=== PATIENT | male | born 1955 | race Asian ===

== ENCOUNTER 2018-12-05 10:07 | Inpatient (IN) | payer MEDICARE, OTHER ==
[~2018-12-05] VITALS: Ht 165.1 cm; Wt 57.1 kg
[2018-12-05 10:49] LABS: Basophils # (auto) 0 uL; Basophils % (auto) 1.1 % (0.0-2.0); Eosinophils # (auto) 0.1 uL; Eosinophils % (auto) 3.3 % (0.0-7.0); Hematocrit 40.1 % (41.0-53.0); Hemoglobin 13.3 g/dL (13.5-17.5); Lymphocytes # (auto) 0.7 uL; Lymphocytes % (auto) 19.2 % (10.0-50.0); Mean Corpuscular Hemoglobin 32.2 pg (28.0-32.0); Mean Corpuscular Hgb Conc. 33.1 g/dL (32.0-36.0); Mean Corpuscular Volume 97.3 fL (80.0-100.0); Monocytes # (auto) 0.2 uL; Monocytes % (auto) 5.9 % (0.0-12.0); Neutrophils # (auto) 2.5 uL; Neutrophils % (auto) 70.5 % (37.0-80.0); Nucleated Red Blood Cells % 0.1 %; Platelet Count (auto) 130 10^3/uL (140-450); Red Blood Cells 4.13 10^6/uL (4.5-5.90); Red Cell Distribution Width 15.1 % (11.8-14.3); White Blood Cell 3.5 10^3/uL (4.4-10.8)
[2018-12-05 11:10] LABS: Albumin 3.2 g/dL (3.4-5.0); Calcium 8.2 mg/dL (8.5-10.1); Magnesium 1.6 mg/dL (1.6-2.6); Potassium 3.6 mmol/L (3.5-5.1)
[2018-12-05 11:15] LABS: BUN/Creatinine Ratio 24.4; Bilirubin, Total 1.4 mg/dL (0.2-1.0); Total Protein 6.4 g/dL (6.4-8.2)
[2018-12-05] MEDS ORDERED: ENOXAPARIN SOD 60 MG/0.6 ML SYRINGE SC ONE (11:45)
[2018-12-05] MEDS ORDERED: FUROSEMIDE 40 MG/4 ML VIAL IV ONE (11:45)
[2018-12-05] MEDS ORDERED: MORPHINE SULF INJ 2 MG/ML SYRINGE 1ML IV PRN ×2 (13:30)
[2018-12-05] MEDS ORDERED: NITROGLYCERIN 0.4 MG SL TAB SL PRN (13:30)
[2018-12-05] MEDS ORDERED: ONDANSETRON HCL 4 MG/2 ML VIAL IV PRN (13:30)
[2018-12-05] MEDS ORDERED: ALBUTEROL SULF 2.5 MG/0.5ML(0.5%) NEB SOLN NEB PRN (13:30)
[2018-12-05 14:02] VITALS: BP 107/43
--- NOTE | 2018-12-05 14:20 | NUR ---
Pt Arrived On Unit Pt arrived on unit via wheelchair. Pt able to ambulate to bed without difficulty. Pt is a/ox4 with no s/s of distress or SOB. Safety measures maintained with call light within reach, bed in lowest position and side rails up. Will continue to monitor for changes q1hr and prn.
[2018-12-05 15:01] VITALS: BP 105/48
[2018-12-05 15:17] VITALS: BP 105/48
[2018-12-05] MEDS ORDERED: ASPI-404 PO (15:27)
--- NOTE | 2018-12-05 16:11 | NUR ---
Respiratory note: PT FOUND ON NASAL CANNULA 2 LPM WITH NO DISTRESS NOTED. PT IS AWAKE, ALERT AND RESPONSIVE. SPO2 96% RR 18, BS CLEAR AND DIMINISHED. PT DENIES ANY SOB AT THIS TIME. PT NOTIFIED TO PUSH CALL BUTTON AND HAVE RT PAGED IF SOB OCCURS. NO TX INDICATED AT THIS TIME.
--- NOTE | 2018-12-05 16:47 | NUR ---
Dr Irving at Bedside to See Pt Plans for VQ scan and CT chest. Will follow through with orders.
--- NOTE | 2018-12-05 16:52 | NUR ---
Dr Victoria at Bedside Orders given, will implement.
[2018-12-05 17:27] VITALS: BP 106/51
--- NOTE | 2018-12-05 17:28 | NUR ---
Pt Taken to CT via Wheelchair
--- NOTE | 2018-12-05 18:08 | NUR ---
US AT BEDSIDE FOR ECHO
--- NOTE | 2018-12-05 20:00 | NUR ---
RECEIVE IN BED WATCHING TV
[2018-12-05] MEDS ORDERED: FUROSEMIDE 40 MG/4 ML VIAL ONE (21:25)
[2018-12-05] MEDS: FUROSEMIDE 40 MG/4 ML VIAL IV SCH (21:34)
[2018-12-05] MEDS: ENOXAPARIN SOD 40 MG/0.4 ML SYRINGE SC SCH (21:38)
[2018-12-05] MEDS: ATORVASTATIN 20 MG TAB PO SCH (21:38)
[2018-12-05 22:00] VITALS: BP 103/54
[2018-12-06 05:00] VITALS: BP 95/46
[2018-12-06 06:02] LABS: Basophils # (auto) 0 uL; Eosinophils # (auto) 0.3 uL; Eosinophils % (auto) 6.6 % (0.0-7.0); Hematocrit 37.7 % (41.0-53.0); Hemoglobin 12.8 g/dL (13.5-17.5); Lymphocytes # (auto) 0.8 uL; Lymphocytes % (auto) 20.5 % (10.0-50.0); Mean Corpuscular Hemoglobin 32.5 pg (28.0-32.0); Mean Corpuscular Hgb Conc. 33.9 g/dL (32.0-36.0); Mean Corpuscular Volume 95.9 fL (80.0-100.0); Monocytes # (auto) 0.3 uL; Neutrophils # (auto) 2.5 uL; Neutrophils % (auto) 64.9 % (37.0-80.0); Nucleated Red Blood Cells % 0.1 %; Platelet Count (auto) 129 10^3/uL (140-450); Red Blood Cells 3.93 10^6/uL (4.5-5.90); Red Cell Distribution Width 14.7 % (11.8-14.3); White Blood Cell 3.8 10^3/uL (4.4-10.8)
[2018-12-06 06:23] LABS: Albumin 3.2 g/dL (3.4-5.0); BUN/Creatinine Ratio 23.4; Bilirubin, Total 1.7 mg/dL (0.2-1.0); Calcium 8.2 mg/dL (8.5-10.1); Magnesium 2.1 mg/dL (1.6-2.6); Potassium 3.4 mmol/L (3.5-5.1)
--- NOTE | 2018-12-06 07:53 | NUR ---
Respiratory note: PRE AND POST BRONCHODILATOR SPIROMETRY DONE. RESULTS ARE POSTED IN PAPER CHART.
[2018-12-06 08:00] VITALS: BP 103/54
[2018-12-06 08:49] VITALS: BP 98/56
[2018-12-06] MEDS ORDERED: ASPirin 81 mg TAB PO ONE (10:00)
--- NOTE | 2018-12-06 10:00 | NUR ---
Scheduled Lasix held at this time due to B/P of . Pt showing no resp distress at this time.
[2018-12-06] MEDS: ASPirin 81 mg TAB PO SCH (10:29)
[2018-12-06] MEDS: POTASSIUM CHL 20 Meq TABLET PO SCH (10:29)
[2018-12-06] MEDS: ENOXAPARIN SOD 40 MG/0.4 ML SYRINGE SC SCH (10:29)
--- NOTE | 2018-12-06 12:00 | NUR ---
Dr. Salinas informed of VQ scan results.
[2018-12-06 12:41] VITALS: BP 106/57
--- NOTE | 2018-12-06 14:00 | NUR ---
Previously scheduled Lasix given at this time. B/P 106/57. Pt denies chest pain. O2 maintained at 2L/n.c. Resp even, unlabored at rest. Pt showing some exertional dyspnea while on room air, and ambulating to bathroom. No other c/o pain or discomfort.
[2018-12-06] MEDS: FUROSEMIDE 40 MG/4 ML VIAL IV SCH ×2 (14:16→21:51)
[2018-12-06 16:50] VITALS: BP 108/49
--- NOTE | 2018-12-06 18:48 | NUR ---
PT ASSESSED FOR PRN MED NEB TX. SPO2 99% ON 3L NC, HR 79. PT DENIES NEED FOR MED NEB TX AT THIS TIME. NO TX INDICATED. PT IS AWARE TO HAVE RT PAGED IF TX NEEDED.
--- NOTE | 2018-12-06 20:00 | NUR ---
Opening Shift Note Assumed care of patient, awake and alert. No S/S of distress/SOB or pain. Instructed on POC and to call for assist PRN, will continue to monitor for changes Q1hr and PRN.
[2018-12-06] MEDS: ENOXAPARIN SOD 80 MG/0.8ML SYRINGE SC SCH (21:36)
[2018-12-06] MEDS: ATORVASTATIN 20 MG TAB PO SCH (21:37)
[2018-12-06 22:00] VITALS: BP 104/49
[2018-12-07 05:03] VITALS: BP 98/48
[2018-12-07 05:58] LABS: Basophils # (auto) 0 uL; Basophils % (auto) 0.5 % (0.0-2.0); Eosinophils # (auto) 0.3 uL; Eosinophils % (auto) 6.7 % (0.0-7.0); Hematocrit 40.7 % (41.0-53.0); Lymphocytes % (auto) 23.8 % (10.0-50.0); Mean Corpuscular Hemoglobin 32.9 pg (28.0-32.0); Mean Corpuscular Hgb Conc. 34.5 g/dL (32.0-36.0); Mean Corpuscular Volume 95.4 fL (80.0-100.0); Monocytes # (auto) 0.3 uL; Monocytes % (auto) 7.5 % (0.0-12.0); Neutrophils # (auto) 2.7 uL; Neutrophils % (auto) 61.5 % (37.0-80.0); Nucleated Red Blood Cells % 0.1 %; Platelet Count (auto) 133 10^3/uL (140-450); Red Blood Cells 4.27 10^6/uL (4.5-5.90); Red Cell Distribution Width 14.7 % (11.8-14.3); White Blood Cell 4.3 10^3/uL (4.4-10.8)
--- NOTE | 2018-12-07 06:15 | NUR ---
Respiratory note: PATIENT ASSESSED FOR PRN MED-NEB TX. MED-NEB NOT INDICATED AT THIS TIME PATIENT IS IN NO ACUTE RESPIRATORY DISTRESS AND DENIES NEED. PATIENT INSTRUCTED TO CALL FOR RT IF HE FELT THE NEED FOR TX AT A LATER TIME. SPO2 98% 3LPM N/C
[2018-12-07 06:33] LABS: Albumin 3.5 g/dL (3.4-5.0); BUN/Creatinine Ratio 28.4; Bilirubin, Total 1.5 mg/dL (0.2-1.0); Calcium 8.9 mg/dL (8.5-10.1); Magnesium 2.2 mg/dL (1.6-2.6); Potassium 3.5 mmol/L (3.5-5.1); Total Protein 6.7 g/dL (6.4-8.2)
--- NOTE | 2018-12-07 07:23 | NUR ---
Report given to Kristine Peterson, patient is resting no resp. distress.
[2018-12-07 08:00] VITALS: BP 104/49
[2018-12-07 09:19] VITALS: BP 101/45
[2018-12-07] MEDS: ASPirin 81 mg TAB PO SCH (09:29)
[2018-12-07] MEDS: POTASSIUM CHL 20 Meq TABLET PO SCH (09:30)
[2018-12-07] MEDS: FUROSEMIDE 40 MG/4 ML VIAL IV SCH ×2 (09:30→21:39)
[2018-12-07] MEDS: ENOXAPARIN SOD 80 MG/0.8ML SYRINGE SC SCH ×2 (09:31→21:39)
[2018-12-07 12:47] VITALS: BP 96/42
[2018-12-07 17:23] VITALS: BP 97/36
--- NOTE | 2018-12-07 18:44 | NUR ---
Respiratory note: ASSESSMENT FOR PRN MED NEB TX. HR 90, SPO2 99% ON 4L NC, RR 17, BS DIMINISHED. PT PRESENTING NO RESPIRATORY DISTRESS AT THIS TIME, MED NEB TX NOT INDICATED. TITRATED FIO2 TO 3L, PT TOLERATING WELL. PT AWARE TO HAVE RT PAGED IF MED NEB TX IS NEEDED. WILL CONTINUE TO MONITOR ORDERED.
--- NOTE | 2018-12-07 20:00 | NUR ---
Opening Shift Note Assumed care of patient, awake and alert. No S/S of distress/SOB or pain. Instructed on POC and to call for assist PRN, will continue to monitor for changes Q1hr and PRN.Reading the bible.
[2018-12-07] MEDS: ATORVASTATIN 20 MG TAB PO SCH (21:39)
[2018-12-07 22:00] VITALS: BP 106/49
[2018-12-08 05:45] LABS: Basophils # (auto) 0 uL; Basophils % (auto) 1.2 % (0.0-2.0); Eosinophils # (auto) 0.3 uL; Eosinophils % (auto) 8.4 % (0.0-7.0); Hematocrit 41.6 % (41.0-53.0); Hemoglobin 14.3 g/dL (13.5-17.5); Lymphocytes # (auto) 0.9 uL; Lymphocytes % (auto) 23.1 % (10.0-50.0); Mean Corpuscular Hemoglobin 32.7 pg (28.0-32.0); Mean Corpuscular Hgb Conc. 34.4 g/dL (32.0-36.0); Mean Corpuscular Volume 95.3 fL (80.0-100.0); Monocytes # (auto) 0.4 uL; Monocytes % (auto) 9.1 % (0.0-12.0); Neutrophils # (auto) 2.2 uL; Neutrophils % (auto) 58.2 % (37.0-80.0); Nucleated Red Blood Cells % 0.1 %; Platelet Count (auto) 145 10^3/uL (140-450); Red Blood Cells 4.37 10^6/uL (4.5-5.90); Red Cell Distribution Width 14.6 % (11.8-14.3); White Blood Cell 3.9 10^3/uL (4.4-10.8)
[2018-12-08 06:01] VITALS: BP 102/46
[2018-12-08 06:06] LABS: Albumin 3.6 g/dL (3.4-5.0); BUN/Creatinine Ratio 23.9; Calcium 8.9 mg/dL (8.5-10.1); Magnesium 2.4 mg/dL (1.6-2.6); Potassium 3.7 mmol/L (3.5-5.1)
[2018-12-08 06:09] LABS: Total Protein 6.7 g/dL (6.4-8.2)
--- NOTE | 2018-12-08 06:30 | NUR ---
IV insertion IV access obtained, via clean sterile technique by inserting 22 gauge catheter at left forearm after attempt. IV secured properly. No trauma to site. Patient tolerated procedure well.
--- NOTE | 2018-12-08 06:30 | NUR ---
IV removal IV DC'd with sterile technique, catheter fully intact. Pressure dressing applied to site. Patient tolerated procedure well. NOTE: I.v.line its the 3rd day, need to insert a new line.
--- NOTE | 2018-12-08 07:26 | NUR ---
Care report given to Kristine Hallman, patient is resting no distress.
--- NOTE | 2018-12-08 08:00 | NUR ---
Patient sitting in chair, awake, oriented x4, ambulatory. Patient requested for shampoo to wash his hair. Shampoo/body wash provided.
[2018-12-08 09:00] VITALS: BP 112/34
[2018-12-08 09:40] LABS: INR 1.03 (0.9-1.15)
[2018-12-08] MEDS: FUROSEMIDE 40 MG/4 ML VIAL IV SCH ×2 (09:55→21:29)
[2018-12-08] MEDS: ASPirin 81 mg TAB PO SCH (09:55)
[2018-12-08] MEDS: POTASSIUM CHL 20 Meq TABLET PO SCH (09:55)
[2018-12-08] MEDS: ENOXAPARIN SOD 80 MG/0.8ML SYRINGE SC SCH ×2 (09:57→21:31)
--- NOTE | 2018-12-08 09:57 | NUR ---
Patient refused Lovenox SC.
--- NOTE | 2018-12-08 11:10 | NUR ---
Keep patient NPO for Left Heart Cath today as per Dr. Galindo.
--- NOTE | 2018-12-08 11:10 | NUR ---
Dr. Galindo came over. ordered Left Heart Cath with Dr. Brambila at 2:00 pm today. made aware patient had breakfast, refused Lovenox SC. Dr. Galindo ordered NPO for the patient.
--- NOTE | 2018-12-08 11:43 | NUR ---
NUTRITION ASSESSMENT NOTES Please refer to link notes of nutrition screen form filed under the intervention section of the plan of care for further details. Est. Needs: 1750 kcal to 2050 kcal (25-30 kcal/kgBW), 58 gms to 70 gms pro (1.0-1.2 gms/kgBW). Will continue to monitor pertinent labs and reassess nutrient need prn Thank you. Addendum: 12/08/18 at [address] Amended: Links added.
--- NOTE | 2018-12-08 12:40 | NUR ---
Transferred the patient via bed, to Medical Cash Poster. Patient awake, oriented x4, no acute distress noted, IV line intact and patent. Endorsed patient to Medical Cash Poster KEL Marina.
[2018-12-08] MEDS ORDERED: IOHEXOL 350 MG/ML 100ML IJ ONE (13:08)
[2018-12-08] MEDS ORDERED: LIDOCAINE 2%HCL (LOCAL ANESTH.) INJ 20ML MDV ONE (13:09)
[2018-12-08] MEDS ORDERED: ANGIOMAX 250 MG VIAL IV ONE (13:17)
[2018-12-08] MEDS ORDERED: HEPARIN SODIUM (PORCINE) 5000 UNITS/ML 1ML VIAL ONE (13:18)
[2018-12-08] MEDS ORDERED: fentaNYL CITRATE 100 MCG/2 ML VL ONE (13:18)
[2018-12-08] MEDS ORDERED: VERAPAMIL 2.5MG/ML INJ 2ML VIAL IV ONE (13:18)
[2018-12-08] MEDS ORDERED: MIDAZOLAM HCL 1MG/1ML-2 ML VIAL ONE (13:18)
[2018-12-08] MEDS ORDERED: SODIUM CHL 0.9% 0 ML ONE (13:18)
[2018-12-08] MEDS ORDERED: IODIXANOL 320MG/ML 100ML BTL IV ONE (13:53)
[2018-12-08 14:00] VITALS: BP 117/29
[2018-12-08] MEDS ORDERED: FUROSEMIDE 40 MG/4 ML VIAL IV ONE (15:15)
--- NOTE | 2018-12-08 15:24 | NUR ---
Patient still at Grain Weigher at this time.
--- NOTE | 2018-12-08 15:24 | NUR ---
Received report from Senior Php Developer KEL Myers that patient's LHC is negative, okay to ambulate at 3:30 pm, access is the right wrist on Vasc band, start deflating at 3:30 pm today.
--- NOTE | 2018-12-08 15:45 | NUR ---
Patient back to room, right wrist on Vasc band. NS drip for 6 hours only (up to 10:00 pm tonight) as per Chart Picker.
[2018-12-08] MEDS: SODIUM CHLORIDE 0.9% 1,000 ML IV SCH (15:59)
--- NOTE | 2018-12-08 17:00 | NUR ---
About 5 ml of air removed on the wrist band. Addendum: 12/08/18 at 1928 by Viji Montenegro RN Vasc band
[2018-12-08 17:24] VITALS: BP 101/28
--- NOTE | 2018-12-08 18:00 | NUR ---
About 5 ml of air removed from the Vasc band on the wrist. No active bleeding noted.
--- NOTE | 2018-12-08 18:00 | NUR ---
Family member at bedside.
--- NOTE | 2018-12-08 20:00 | NUR ---
RECEIVE IN BED IS WATCHING TV VASC BAND CHECKED NO BLEEDING 2ML OF AIR REMOVED IS ANXIOUS TO HAVE SAME REMOVED
--- NOTE | 2018-12-08 20:41 | NUR ---
Respiratory note: PT DID NOT DISPLAY SIGNS OF RESPIRATORY DISTRESS AT THIS TIME. PT ON 2L NC WITH SPO2 96%. HR 81. BS CLEAR. RR 16. PT EDUCATED ON NURSE CALL BUTTON INCASE OF SOB.
[2018-12-08 21:00] VITALS: BP 107/46
--- NOTE | 2018-12-08 21:00 | NUR ---
RT WRIST HEART CATH SITE WITH VASC BAND NO BLEEDING OBSERVED 2ML OF AIR REMOVED, UP WALKING TO BATHROOM
[2018-12-08] MEDS: ATORVASTATIN 20 MG TAB PO SCH (21:30)
[2018-12-08] MEDS: SACUBITRIL-VALSARTAN 24mg/26mg TAB PO SCH (21:31)
[2018-12-08 23:03] VITALS: BP 107/46
[2018-12-09] MEDS: SODIUM CHLORIDE 0.9% 1,000 ML IV SCH ×3 (01:15→21:15)
[2018-12-09 04:50] VITALS: BP 95/41
--- NOTE | 2018-12-09 06:16 | NUR ---
RT WRIST HEART CATH SITE CHECKED NO BLEEDING OR HEMATOMA
[2018-12-09 07:31] LABS: Calcium 8.4 mg/dL (8.5-10.1); Potassium 3.6 mmol/L (3.5-5.1)
[2018-12-09 07:34] LABS: BUN/Creatinine Ratio 25.5
--- NOTE | 2018-12-09 08:27 | NUR ---
Respiratory note: PT ASSESSMENT FOR Q6PRN. FOUND PT ON 2 LPM NC. PT IS AWAKE, ALERT AND RESPONSIVE. NO DISTRESS AT THIS TIME. NO COMPLAINT OF SOB. HR IS 82, RR 16, SP02 96%. B/S ARE CLEAR THROUGHOUT. TX NOT INDICATED AT THIS TIME. INFORMED PT IF BECOMES SOB TO PUSH CALL LIGHT AND RT WILL BE PAGED. NO QUESTIONS OR CONCERNS AT THIS TIME.
[2018-12-09 09:00] VITALS: BP 100/42
[2018-12-09] MEDS: FUROSEMIDE 40 MG/4 ML VIAL IV SCH ×2 (10:00→22:36)
[2018-12-09] MEDS: POTASSIUM CHL 20 Meq TABLET PO SCH (10:07)
[2018-12-09] MEDS: ASPirin 81 mg TAB PO SCH (10:07)
[2018-12-09] MEDS: ENOXAPARIN SOD 80 MG/0.8ML SYRINGE SC SCH (10:10)
[2018-12-09 13:00] VITALS: BP 99/44
--- NOTE | 2018-12-09 15:28 | NUR ---
Called [facility] regarding SNF order ([phone])-to request list of their contracted facilities as well as authorization-was immediately placed on hold for more than 10 minutes, no one ever came back to the phone. Faxed same request to [facility] at [phone].
[2018-12-09 16:47] VITALS: BP 104/39
--- NOTE | 2018-12-09 19:26 | NUR ---
Respiratory note: At bedside to assess for prn tx, tx not indicated at this time. BS are fine course in LLL diminished clear t/o, HR. RR 16-18, pox 97% on 3LPM NC. RT name and pager assignment written on pts room board. Will continue to monitor as needed.
[2018-12-09 22:00] VITALS: BP 105/36
[2018-12-09] MEDS: APIXABAN 5 MG TAB PO SCH (22:35)
[2018-12-09] MEDS: SACUBITRIL-VALSARTAN 24mg/26mg TAB PO SCH (22:35)
[2018-12-09] MEDS: ATORVASTATIN 20 MG TAB PO SCH (22:36)
[2018-12-10 06:00] VITALS: BP 99/43
[2018-12-10] MEDS: SODIUM CHLORIDE 0.9% 1,000 ML IV SCH ×2 (07:15→17:15)
[2018-12-10 09:00] VITALS: BP 108/48
--- NOTE | 2018-12-10 09:34 | NUR ---
Respiratory note: PT ASSESSED FOR PRN MED NEB TX, NO TX DESIRED NOR INDICATED AT THIS TIME. NO C/O SOB OR DIFF BREATHING. NO SIGNS OF DISTRESS NOTED. HR 85 RR 16 SPO2 99% ON 3L N/C TITRATED DOWN TO 2L N/C SPO2 REMAINED 99% BREATH SOUNDS ARE CLEAR/DIMINISHED T/O. PT AWAKE/ALERT SITTING IN BED. PT AND RN AWARE TO HAVE RT PAGE DIF NEEDED.
[2018-12-10] MEDS: FUROSEMIDE 40 MG/4 ML VIAL IV SCH (09:37)
[2018-12-10] MEDS: ASPirin 81 mg TAB PO SCH (09:39)
[2018-12-10] MEDS: POTASSIUM CHL 20 Meq TABLET PO SCH (09:39)
[2018-12-10] MEDS: APIXABAN 5 MG TAB PO SCH (09:39)
--- NOTE | 2018-12-10 11:19 | NUR ---
1115 12/10/18 Contacted Zandra at [facility] and requested authorization for admission as well as continued stay. Per Zandra, only tracking number provided-stay has not been authorized yet. I asked about SNF placement, she transferred the call to Pressurizer Allegra-I left her a message asking for a list of participating SNF's as well as authorization for SNF and transportation.
[2018-12-10 13:00] VITALS: BP 94/41
--- NOTE | 2018-12-10 16:02 | NUR ---
1545 12/10/18 I spoke with [facility] Wildlife Control Agent Allegra [phone] to request authorization for [facility]. She said that she would fax it directly to them and would call me back with the authorization number. I faxed her MD progress notes for 12/09 and 12/10 as well as PT evaluation. Per Allegra the authorization number for transportation is [id number]. I spoke with Alicia at [facility] to let her know that the authorization was being faxed over.
--- NOTE | 2018-12-10 16:08 | NUR ---
D/C Planning Per consult for SNF placement for rehab. Contacted [facility], [facility] and [facility].Per Franklin from [facility] they are not contract with insurance. Per Leidy from [facility] they are not contract with insurance. Per Olga Lidia from [facility] Ph:( [phone]) ) Pt has been accepted to room 36b accepting MD Dr. Carrasco. Will arrange transportation upon d/c day. Informed KEL Hastings. Addendum: 12/10/18 at 1614 by ARTUR GUTIERREZ Amended: Links added.
--- NOTE | 2018-12-10 16:27 | NUR ---
D/C Planning Contact [facility] ) spoke to Gloria. Advised Gloria from [facility] to arrange transportation at 18:30 via gurney with oxygen. Informed KEL Hastings.
--- NOTE | 2018-12-10 16:28 | NUR ---
I received a call from [facility] Interventional Radiology Technologist Allegra-the authorization number for [facility] is [id number].
[2018-12-10 17:00] VITALS: BP 100/44
[2018-12-10 17:22] VITALS: BP 100/44
--- NOTE | 2018-12-10 18:11 | NUR ---
CALL PLACED TO [facility], SPOKE WITH UNA, WHO STATED PT IS NOT ACCEPTED AT FACILITY UNTIL TOMORROW. NOTIFIED ARTUR, DISPENSARY TECHNICIAN ROBOTICS APPLICATION ENGINEER.
--- NOTE | 2018-12-10 18:35 | NUR ---
ALL APPROPRIATE PAPERWORK TAKEN CARE OF, PT TO DISCHARGE TO [facility]. REPORT GIVEN TO FLORENCIO VIA TELEPHONE. IV REMOVED, TELE BOX REMOVED. ALL APPROPRIATE PAPERWORK SIGNED. PRESENTLY TRANSPORT HERE TO TAKE PT.
--- NOTE | 2018-12-10 18:56 | NUR ---
PT DISCHARGED TO [facility] VIA AMBULANCE.
[2018-12-11] MEDS ORDERED: SACUBITRIL-VALSARTAN 24mg/26mg TAB PO SCH (10:00)
[2018-12-16] MEDS ORDERED: APIXABAN 5 MG TAB PO SCH (22:00)
== END 2018-12-10 18:45 | DRG 286 ==
LOC: ER 10:07 → TELE 10:08 → TELE-CENTR 14:40
PROVIDERS: ADMIT Internal Medicine; ATTEND Internal Medicine
PROC: 4A023N7 Measurement of Cardiac Sampling and Pressure, Left Heart, Percutaneous Approach (ICD-10-PCS; principal; 2018-12-08)
PROC: B2111ZZ Fluoroscopy of Multiple Coronary Arteries using Low Osmolar Contrast (ICD-10-PCS; 2018-12-08)
PROC: B2151ZZ Fluoroscopy of Left Heart using Low Osmolar Contrast (ICD-10-PCS; 2018-12-08)
DX: I50.43 Acute on chronic combined systolic (congestive) and diastolic (congestive) heart failure (principal); I26.99 Other pulmonary embolism without acute cor pulmonale; J96.01 Acute respiratory failure with hypoxia; N17.9 Acute kidney failure, unspecified; R73.9 Hyperglycemia, unspecified; J45.909 Unspecified asthma, uncomplicated; I27.20 Pulmonary hypertension, unspecified; Z82.5 Family history of asthma and other chronic lower respiratory diseases; Z87.891 Personal history of nicotine dependence; Z88.0 Allergy status to penicillin
CPT/HCPCS: 36415; 71046; 71250; 78582; 80048; 80053; 83036; 83735; 83880; 84484; 85025; 85610; 85730; 93005; 93306; 93458; 94060; 94640; 96372; 96374; 97163; 99152; 99153; 99291; G0378; J2250; Q9967

== ENCOUNTER 2023-01-20 11:58 | Emergency (ER) | payer MEDICARE, OTHER ==
[~2023-01-20] VITALS: Ht 165.1 cm; Wt 62.7 kg
[~2023-01-20 11:58] MED LIST: ASPI-543 PO
[2023-01-20 13:56] VITALS: BP 143/80; PULSE 77; RESP 16; TEMP 98.5; O2SAT 97
[2023-01-20 14:21] LABS: Basophils # (auto) 0 10 ^3/uL (0-0.2); Basophils % (auto) 0.5 % (0.0-2.0); Eosinophils # (auto) 0.2 10 ^3/uL (0-0.8); Eosinophils % (auto) 3.4 % (0.0-7.0); Hemoglobin 14.4 g/dL (13.5-17.5); Lymphocytes # (auto) 0.8 10 ^3/uL (0.4-5.4); Lymphocytes % (auto) 14.3 % (10.0-50.0); Mean Corpuscular Hemoglobin 32.6 pg (28.0-32.0); Mean Corpuscular Hgb Conc. 33.4 g/dL (32.0-36.0); Mean Corpuscular Volume 97.6 fL (80.0-100.0); Monocytes # (auto) 0.4 10 ^3/uL (0-1.3); Monocytes % (auto) 6.4 % (0.0-12.0); Neutrophils # (auto) 4.5 10 ^3/uL (1.6-8.6); Neutrophils % (auto) 75.4 % (37.0-80.0); Nucleated Red Blood Cells % 0.1 %; Red Blood Cells 4.41 10^6/uL (4.5-5.90); White Blood Cell 5.9 10^3/uL (4.4-10.8)
[2023-01-20 15:11] LABS: Alanine Aminotransferase 27 U/L (7-40); Albumin 4.2 g/dL (3.2-4.8); Alkaline Phosphatase 81 U/L (46-116); Anion Gap 6 (5-15); Aspartate Aminotransferase 27 U/L (13-40); BUN/Creatinine Ratio 14.7 (10.0-20.0); Blood Urea Nitrogen 14 mg/dL (9-23); Calcium 8.7 mg/dL (8.7-10.4); Carbon Dioxide 25 mmol/L (20-30); Chloride 109 mmol/L (98-107); Glucose 102 mg/dL (74-106); Potassium 3.8 mmol/L (3.5-5.1); Sodium 140 mmol/L (136-145)
[2023-01-20 15:12] LABS: Bilirubin, Total 0.7 mg/dL (0.2-1.0); Total Protein 6.9 g/dL (5.7-8.2)
[2023-01-20] MEDS ORDERED: BACDST PO (15:36)
== END 2023-01-20 15:38 | disposition home or self-care (01) ==
LOC: ER 11:58
DX: M79.675 Pain in left toe(s) (principal); Z79.82 Long term (current) use of aspirin; Z79.899 Other long term (current) drug therapy; Z88.0 Allergy status to penicillin
CPT/HCPCS: 36415; 73630; 80053; 84550; 85025; 87040

== ENCOUNTER 2024-05-22 11:17 | Emergency (ER) | payer MEDICARE ==
[~2024-05-22] VITALS: Ht 165.1 cm; Wt 59.0 kg
[~2024-05-22 11:17] MED LIST changes: +BACDST PO
[2024-05-22 12:09] VITALS: BP 126/60; PULSE 90; RESP 14; TEMP 98.5; O2SAT 96
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
[2024-05-22] MEDS: ACETAMINOPHEN 500 MG TAB or CAP PO ONE (12:20)
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
[2024-05-22] MEDS ORDERED: METH-1181 PO (13:27)
[2024-05-22] MEDS ORDERED: ACET-1304 PO (13:27)
--- NOTE | 2024-05-22 18:26 | ECG ---
[facility] Test Date: 2024-05-22 Test Time: 11:18:38 Pat Name: BALTAZAR WOOTEN Department: ED Room: Gender: M Inspector Penetrant: tatiana : 1955 Requested By: DIPESH HATHAWAY Order Number: [id number] Reading MD: Measurements Intervals [place] Rate: 88 P: 9 NV: 137 QRS: -8 QRSD: 109 T: 31 QT: 380 QTc: 460 Interpretive Statements Sinus rhythm Please click the below link to view image of tracing.
== END 2024-05-22 13:27 | disposition home or self-care (01) ==
LOC: EDBD 11:17 → ER 11:17
DX: S29.011A Strain of muscle and tendon of front wall of thorax, initial encounter (principal); S50.11XA Contusion of right forearm, initial encounter; Z79.82 Long term (current) use of aspirin; Z90.49 Acquired absence of other specified parts of digestive tract; Z88.0 Allergy status to penicillin; V43.62XA Car passenger injured in collision with other type car in traffic accident, initial encounter; Y93.I9 Activity, other involving external motion; Y92.488 Other paved roadways as the place of occurrence of the external cause; Y99.8 Other external cause status
CPT/HCPCS: 71101; 93005

== ENCOUNTER 2024-09-01 10:09 | Outpatient (CLI) | payer MEDICARE ==
[~2024-09-01] VITALS: Ht 160 cm; Wt 59.0 kg
[~2024-09-01 10:09] MED LIST changes: +ACET-1304 PO; +METH-1181 PO
[2024-09-01] MEDS: REGADENOSON 0.4 MG/5 ML SYRG IV ONE ×2 (11:50→11:51)
--- NOTE | 2024-09-03 10:56 | DVHSR ---
APPROVED REPORT Exam: Nuclear Stress Test Indication: CHF, SOB BMI: 0 Medical History Medical History: ef 48%, septal dypkinesis, aortic ectasia 4.4cm, gout, former smoker, CAD, aortic va lve replacement, emphysema Stress Test Details Stress Test: Pharmacologic stress testing performed using 0.4 mg of regadenoson per 5 mL given IV ov er 10 seconds. HR Resting HR: 72 bpmMax Heart Rate (APMHR): 149.684865 bpm Max HR Achieved: 121 bpmTarget HR (85% APMHR): 126.151401 bpm % of APMHR: 81.21 Recovery HR: 83 bpm BP Resting BP: 106/71 mmHg Recovery BP: 104/62 mmHg ECG Resting ECG: Sinus Rhythm Clinical Reason for Termination: Completed protocol Stress ECG Conclusion lvef 52% inferolateral wall ischemia is noted clinical correlate with angiography if appropriate NM EXAM: Myocardial Perfusion REST/STRESS Imaging Protocol: Rest Tc-99m/Stress Tc-99m 1 day Resting Data Rest SPECT myocardial perfusion imaging was performed in supine position 60 minutes following the int ravenous injection of 10.8 mCi of Tc-99m Sestamibi. Time of rest injection: 10:30 Date: 09/01/2024 Time of rest imagin:30 Date: 09/01/2024 Administration Route: IV Administration Site: Left AC Pharmacologic Stress Pharmacologic stress test was performed by injecting Regadenoson 0.4 mg IV push followed by the intra venous injection of 29.9 mCi of Tc-99m Sestamibi. Time of stress injection: 11:50 Date: 09/01/2024 Time of stress imagin:50 Date: 09/01/2024 Administration Route: IV Administration Site: Left AC Gated Stress SPECT was performed 60 minutes after stress injection. The images were gated to evaluate regional wall motion and calculate left ventricular ejection fracti on. Stress only was performed in the Supine position. Nuclear Conclusion Nuclear Findings: positive for ischemia lvef 52% inferolateral wall ischemia is noted clinical correlate with angiography if appropriate
== END 2024-09-01 17:00 | disposition home or self-care (01) ==
LOC: XYW 10:09
PROVIDERS: ATTEND Specialist
DX: I99.8 Other disorder of circulatory system (principal); R06.02 Shortness of breath; I50.9 Heart failure, unspecified; R53.83 Other fatigue
CPT/HCPCS: 78452; 93017; A9500; J2785